=== PATIENT | female | born 1950 | race Caucasian/White ===

== ENCOUNTER → 2018-01-19 | Outpatient (CLI) | payer BC, MEDICARE | END | disposition home or self-care (01) | LOC: RAD 12:56 | DX: R05 Cough (principal) | CPT/HCPCS: 71046 ==

== ENCOUNTER → 2019-01-25 | Outpatient (CLI) | payer BC ==
--- NOTE | 2019-01-26 09:16 | KCIC ---
CT of the chest without contrast, 01/25/2019: HISTORY: COPD, interstitial lung disease Noncontrast scans were obtained with multiplanar reconstructions produced. There are scattered lucencies in both lungs with the pattern indicating emphysema. There are mild streaky pleural-parenchymal opacities in the apices compatible with scarring. There are additional scattered peripheral linear opacities in both lungs compatible with scarring. There are 2 calcified granulomata in the right upper lobe. There is a 5 x 6 mm subpleural spiculated nodule in the right apex as seen on image 18 of series #3. While this may also be a scar, a neoplastic etiology cannot be excluded. A 4 mm subpleural opacity seen medially in the right lower lobe on image 95 of series #3 is elongated in configuration on the coronal views and is probably a scar. No bronchiectasis or honeycombing is seen. There is no evidence of pleural fluid. There is mild calcific plaquing of the thoracic aorta without evidence of aneurysm. Several small mediastinal lymph nodes are seen. A precarinal lymph node measures 8 mm in short axis dimension. No definite pathologically enlarged nodes are seen. IMPRESSION: 1. Emphysema with pleural/parenchymal scarring. 2. Old healed granulomatous disease in the chest. 3. Small nonspecific right apical pulmonary nodule. CT follow-up is suggested. PQRS Compliance Statement: One or more of the following individualized dose reduction techniques were utilized for this examination: 1. Automated exposure control 2. Adjustment of the mA and/or kV according to patient size 3. Use of iterative reconstruction technique Electronically signed by: Virgilio Contreras MD (01/26/2019 9:13 AM) [facility]
== END | disposition home or self-care (01) ==
LOC: KCIC CT 15:10
PROVIDERS: ATTEND Internal Medicine Pulmonary Disease
DX: J98.4 Other disorders of lung (principal); J43.9 Emphysema, unspecified; R91.8 Other nonspecific abnormal finding of lung field; R91.1 Solitary pulmonary nodule
CPT/HCPCS: 71250

== ENCOUNTER → 2019-09-20 | Outpatient (CLI) | payer BC ==
--- NOTE | 2019-09-20 13:45 | KCIC ---
EXAM: Chest, 2 views. HISTORY: Bronchitis. COMPARISON: CT dated 01/25/2019. FINDINGS: 2 views of the chest are obtained. There is no infiltrate, pleural effusion or pneumothorax. The heart is normal in size. There are chronic interstitial changes with apical pleural parenchymal scarring. IMPRESSION: No acute pulmonary finding. Electronically signed by: Darlene Vance MD (09/20/2019 1:42 PM) [facility] [place]
== END | disposition home or self-care (01) ==
LOC: KCIC 12:22
PROVIDERS: ATTEND Family Medicine
DX: J40 Bronchitis, not specified as acute or chronic (principal)
CPT/HCPCS: 71046

== ENCOUNTER → 2019-10-04 | Outpatient (CLI) | payer BC ==
--- NOTE | 2019-10-05 06:52 | RAD ---
CT CHEST WO CONTRAST Indication: Lung nodule Technique: Noncontrast CT imaging was performed of the chest, multiplanar reconstruction images submitted. One or more of the following individualized dose reduction techniques were utilized for this examination: 1. Automated exposure control 2. Adjustment of the mA and/or kV according to patient size 3. Use of iterative reconstruction technique. Comparison: 01/25/2019 Findings: 4 mm right lower lobe nodule image 32 series 2 is stable to slightly less apparent. Right upper lobe nodule about 6 mm image 9 series 2 is similar. There is no new suspicious pulmonary nodularity, infiltrate, pleural or pericardial fluid, or pneumothorax. Minimal density adherent to the right lateral tracheal wall is more likely mild mucus. Major airways are patent. No new significant lymphadenopathy is identified of the chest. There are some small mediastinal nodes as seen previously. There is atherosclerotic calcification of the thoracic aorta. Thoracic aortic caliber is within normal limits. There has been cholecystectomy. There is again mild emphysema. IMPRESSION: 1. Nodules are unchanged, largest near the right apex about 6 mm. As per revised Fleischner guidelines, 18-24 month follow-up is recommended. Electronically signed by: Bobby Gerber MD (10/05/2019 6:49 AM) [id number]
== END | disposition home or self-care (01) ==
LOC: CT 10:46
PROVIDERS: ATTEND Internal Medicine Pulmonary Disease
DX: R91.8 Other nonspecific abnormal finding of lung field (principal); K43.9 Ventral hernia without obstruction or gangrene; I70.0 Atherosclerosis of aorta; Z90.49 Acquired absence of other specified parts of digestive tract
CPT/HCPCS: 71250

== ENCOUNTER → 2020-10-16 | Outpatient (CLI) | payer BC ==
--- NOTE | 2020-10-16 15:44 | RAD ---
CT of the chest without contrast 10/16/2020 INDICATION: Lung nodule. COMPARISON STUDY: CT of the chest without contrast October 04, 2019. TECHNIQUE: Multidetector CT imaging of the chest was performed without the administration of IV contr ast. FINDINGS: Heart size is normal. No pericardial effusion is identified. Limited noncontrast enhanced e valuation the mediastinum demonstrates no pathologically enlarged adenopathy or increasing adenopathy with respect to comparison exam. The wall of the aorta is seen to be relatively hyperdense with resp ect to its lumen. Finding can be associated with anemia. There is no pneumothorax or pleural effusion . Apical scarring is seen bilaterally. There is a small 4-5 mm ovoid nodule along what may be an acce ssory fissure seen in the medial basilar right lung . Somewhat nodular appearing area adjacent to the apical scarring is seen, unchanged from comparison study. This measures approximately 6 mm in diamet er. Limited visualization of the upper abdomen demonstrates no acute abnormalities. No acute osseous changes are identified. IMPRESSION: Stable appearance of 2 small nodules in the right lung as described. Findings are stable with respect to CT scan going back to January 25, 2019. Stability over this time favors a benign etiolog y. Fleischner Society pulmonary nodule recommendations 2017, revision 4 SOLID NODULES Solitary solid nodule <6 mm (<100 mm3) low-risk patients: no routine follow-up required high-risk patients: optional CT at 12 months (particularly with suspicious nodule morphology and/or upper lobe location) Solitary solid nodule 6-8 mm (100-250 mm3) low-risk patients: CT at 6-12 months, then consider CT at 18-24 months high-risk patients: CT at 6-12 months, then CT at 18-24 months Solitary solid nodule >8 mm (>250 mm3) low-risk and high-risk patients: consider CT at 3 months, PET/CT, or tissue sampling Multiple solid nodules <6 mm (<100 mm3) low-risk patients: no routine follow-up required high-risk patients: optional CT at 12 months Multiple solid nodules >6 mm (>100 mm3) low-risk patients: CT at 3-6 months, then consider CT at 18-24 months high-risk patients: CT at 3-6 months, then CT at 18-24 months When multiple nodules are present, the most suspicious nodule should guide further individualized man agement. Electronically signed by: Ashwin Bojorquez MD (10/16/2020 3:42 PM) [id number]
== END ==
LOC: CT 10:27
PROVIDERS: ATTEND Internal Medicine Pulmonary Disease
DX: R91.8 Other nonspecific abnormal finding of lung field (principal); J98.4 Other disorders of lung
CPT/HCPCS: 71250